=== PATIENT | female | born 1950 | race Caucasian/White ===

== ENCOUNTER 2020-10-01 17:38 | Emergency (ER) | payer BC, OTHER ==
[~2020-10-01] VITALS: Ht 162.6 cm; Wt 92.1 kg
[2020-10-01] MEDS ORDERED: cloNIDine HCL 0.1 MG TAB PO ONE (17:45)
[2020-10-01 18:15] VITALS: BP 197/96
[2020-10-01] MEDS ORDERED: cefTRIAXone SOD 1,000 MG VL IM ONE (19:15)
[2020-10-01] MEDS ORDERED: TETANUS-DIPTH-ACEL PERTUSSIS 0.5ML SYR Tdap IM ONE (19:15)
[2020-10-01] MEDS ORDERED: methylPREDNISolone SOD SUCC 125 MG/2 ML VL IM ONE (19:15)
== END 2020-10-01 21:24 | disposition home or self-care (01) ==
LOC: ER 17:38
DX: L03.116 Cellulitis of left lower limb (principal); L03.115 Cellulitis of right lower limb; R03.0 Elevated blood-pressure reading, without diagnosis of hypertension; Z88.6 Allergy status to analgesic agent; Z88.5 Allergy status to narcotic agent; Z98.890 Other specified postprocedural states
CPT/HCPCS: 93970; 96372; 99284; J0696; J2930

== ENCOUNTER 2022-01-06 21:48 | Emergency (ER) | payer BC ==
[~2022-01-06] VITALS: Ht 162.6 cm; Wt 86.4 kg
[2022-01-06 22:00] VITALS: BP 157/73
[2022-01-07] MEDS ORDERED: TETANUS-DIPTH-ACEL PERTUSSIS 0.5ML SYR Tdap IM ONE (02:15)
[2022-01-07] MEDS ORDERED: CEPH500T PO (02:53)
== END 2022-01-07 03:06 | disposition home or self-care (01) ==
LOC: ER 21:48
DX: S81.811A Laceration without foreign body, right lower leg, initial encounter (principal); Z79.899 Other long term (current) drug therapy; Z88.8 Allergy status to other drugs, medicaments and biological substances; W26.8XXA Contact with other sharp object(s), not elsewhere classified, initial encounter; Y93.89 Activity, other specified; Y92.89 Other specified places as the place of occurrence of the external cause; Y99.8 Other external cause status
CPT/HCPCS: 12002; 90471; 90715; 99283; J2001